=== PATIENT | female | born 1965 | race African-American/Black ===

== ENCOUNTER 2021-03-06 10:42 | Emergency (ER) | payer BC, OTHER ==
[2021-03-06 11:09] VITALS: BMI 27.6
[2021-03-06] MEDS ORDERED: SODIUM CHLORIDE 1,000 ML IV STA (11:47)
[2021-03-06] MEDS ORDERED: ELECTROLYTE-148 SOLN 1,000 ML IV SCH (12:45)
[2021-03-06] MEDS ORDERED: ACETAMINOPHEN 1000 MG/100 ML VIAL (NON FORMULARY) IVPB ONE (13:02)
[2021-03-06] MEDS ORDERED: ACETAMINOPHEN INJECTION 100 ML IVPB ONE (13:10)
[2021-03-06 13:16] LABS: BASO % 0.9 % (0-2.0); EOS % 1.3 % (0-4.5); HEMATOCRIT 41.5 % (32.4-45.2); HEMOGLOBIN 14.1 GM/dL (10.7-15.3); LYMPH % 37.3 % (8-40); MCH 28.1 pg (25.7-33.7); MEAN CELL VOLUME 82.6 fl (80-96); MEAN PLT VOLUME 7.5 fl (7.5-11.1); MONO % 15.8 % (3.8-10.2); NEUT % 44.7 % (42.8-82.8); PLATELET COUNT 328 10^3/uL (134-434); RBC 5.02 M/mm3 (3.60-5.2); RDW 13.7 % (11.6-15.6); WHITE BLOOD COUNT 5.1 K/mm3 (4.0-10.0)
[2021-03-06] MEDS ORDERED: LACTATED RINGERS SOLUTION 1000 ML INFUS.BAG IV ONE (13:36)
[2021-03-06 13:41] LABS: BLOOD UREA NITROGEN 20.8 mg/dL (7-18); CALCIUM 9.3 mg/dL (8.5-10.1)
[2021-03-06 13:43] LABS: BILIRUBIN,TOTAL 0.3 mg/dL (0.2-1)
[2021-03-06 13:44] LABS: TOT PROT 8.4 g/dl (6.4-8.2)
[2021-03-06 13:46] LABS: CREATININE 1.1 mg/dL (0.55-1.3)
[2021-03-06 14:27] VITALS: BP 143/95; PULSE 78; TEMP 98.6
[2021-03-06 14:31] LABS: PH,URINE 5.5 (5.0-8.0); URINE APPEARANCE TURBID; URINE BILIRUBIN NEGATIVE (NEGATIVE); URINE COLOR YELLOW; URINE GLUCOSE (UA) TRACE (NEGATIVE); URINE KETONE TRACE (NEGATIVE); URINE LEUK ESTERASE NEGATIVE (NEGATIVE); URINE NITRITE NEGATIVE (NEGATIVE); URINE PROTEIN TRACE (NEGATIVE); URINE UROBILINOGEN 0.2 mg/dL (0.2-1.0)
== END 2021-03-06 14:51 ==
LOC: JER 10:42
PROC: 3E033GC Introduction of Other Therapeutic Substance into Peripheral Vein, Percutaneous Approach (ICD-10-PCS; principal; 2021-03-06)
DX: A08.4 Viral intestinal infection, unspecified (principal)
CPT/HCPCS: 36415; 80053; 81003; 83690; 85025; 87040; 87086; 99284-25; C9803; J0131; U0003; U0005

== ENCOUNTER 2022-05-24 15:29 | Emergency (ER) | payer BC, OTHER ==
[2022-05-24 15:48] VITALS: BP 146/96; PULSE 87; RESP 18; TEMP 98.9; BMI 36.8
[2022-05-24] MEDS ORDERED: AZITHROMYCIN 500 MG TABLET PO ONE (18:42)
[2022-05-24] MEDS ORDERED: AZITHROMYCIN 250 MG TABLET ONE (18:49)
== END 2022-05-24 19:02 | disposition home or self-care (01) ==
LOC: JER 15:29
DX: R05.1 Acute cough (principal)
CPT/HCPCS: 71046-TC-FY; 99284-25

== ENCOUNTER 2022-08-03 07:17 | Emergency (ER) | payer BC, OTHER ==
[2022-08-03 07:53] VITALS: TEMP 98; BMI 36.8
[2022-08-03] MEDS ORDERED: ACETAMINOPHEN 325 MG TABLET (FP) PO ONE (08:53)
[2022-08-03] MEDS ORDERED: IBUPROFEN 400 MG TABLET (FP) PO ONE ×2 (08:53→09:35)
[2022-08-03] MEDS ORDERED: LIDOCAINE 5% TOPICAL PATCH TP ONE (08:53)
[2022-08-03] MEDS ORDERED: METHOCARBAMOL 750 MG TAB PO ONE (08:54)
[2022-08-03] MEDS ORDERED: METHOCARBAMOL 500 MG TABLET ONE (09:35)
[2022-08-03] MEDS ORDERED: LIDOCAINE 5% TOPICAL PATCH ONE (09:35)
[2022-08-03] MEDS ORDERED: ACETAMINOPHEN 325 MG TABLET (FP) ONE (09:35)
[2022-08-03] MEDS ORDERED: METHOCARBAMOL 500 MG TABLET PO ONE (09:48)
[2022-08-03 10:52] VITALS: BP 143/93; PULSE 74; RESP 18
[2022-08-03] MEDS ORDERED: LIDOCAINE PATCH REMOVAL MC ONE (22:00)
== END 2022-08-03 10:52 | disposition home or self-care (01) ==
LOC: JERFT 07:17 → JER 07:17 → JERFT 10:52
DX: M54.42 Lumbago with sciatica, left side (principal)
CPT/HCPCS: 99283-25

== ENCOUNTER 2024-03-30 12:11 | Emergency (ER) | payer BC ==
[2024-03-30 12:37] VITALS: BP 139/92; PULSE 85; RESP 18; TEMP 98.6; BMI 37.8
== END 2024-03-30 15:19 | disposition home or self-care (01) ==
LOC: JERFT 12:11
DX: R05.9 Cough, unspecified (principal); J30.2 Other seasonal allergic rhinitis; Z20.822 Contact with and (suspected) exposure to COVID-19
CPT/HCPCS: 0241U-QW; 71046-TC-FY; 99284-25